=== PATIENT | female | born 1950 | race Caucasian/White ===

== ENCOUNTER → 2016-08-17 | Outpatient (CLI) | payer MEDICARE ==
[2016-08-17 11:19] LABS: Appearance,Urine Clear (Clear); Bilirubin,Urine Negative (Negative); Glucose,Urine (UA) Negative (Negative); Ketones,Urine Negative (Negative); Leukocyte Esterase,Urine Negative (Negative); Nitrite,Urine Negative (Negative); Protein,Urine Negative (Negative); Specific Gravity,Urine 1.013 (1.001-1.035); UA Billing (MACRO vs. MICRO) CHEM; Urobilinogen,Urine <2.0 mg/dL (<2.0)
[2016-08-17 11:31] LABS: CH 34.1; CHCM 33.9; HCT 49.6 % (34.0-46.0); HDW 2.47; HGB 16.4 gm/dL (11.4-16.0); MCH 33.5 pg (25.0-35.0); MCV 101.3 fL (80.0-100.0); Macrocytosis Slight; Mean Platelet Volume 8.9; RBC 4.89 m/uL (3.80-5.40); RDW 13.2 % (11.5-15.5)
[2016-08-17 15:46] LABS: Hemoglobin A1C 5.8 % (4.2-6.1)
[2016-08-17 16:29] LABS: LDL Cholesterol, Direct 114.2 mg/dL (0.0-129.0)
== END | disposition home or self-care (01) ==
LOC: LABWHC1 10:31
PROVIDERS: ATTEND Internal Medicine Interventional Cardiology
DX: E78.5 Hyperlipidemia, unspecified (principal); R73.9 Hyperglycemia, unspecified; M81.0 Age-related osteoporosis without current pathological fracture; G62.9 Polyneuropathy, unspecified; E05.90 Thyrotoxicosis, unspecified without thyrotoxic crisis or storm; I10 Essential (primary) hypertension
CPT/HCPCS: 36415; 81003; 82306; 82607; 82947; 83036; 83721; 84439; 84443; 85027

== ENCOUNTER 2016-08-20 10:15 | Day surgery (SDC) | payer MEDICARE ==
[2016-08-18 09:55] VITALS: BMI 30.4
[~2016-08-20 10:15] MED LIST: LACTATED RINGERS 1,000 ML IV SCH; MIDAZOLAM (PF) 1 MG/ML 5 ML VIAL IV PRN; MIDAZOLAM 2 MG/2 ML VIAL IV PRN; SODIUM CHLORIDE 0.9% 1,000 ML IV SCH
[2016-08-20 10:31] VITALS: TEMP 98.3
[2016-08-20] MEDS ORDERED: PROPOFOL 10 MG/ML 20 ML VIAL IV ONE (11:38)
[2016-08-20] MEDS ORDERED: LIDOCAINE 1% INJ 10MG/ML (20 ML MDV) ONE (11:38)
[2016-08-20] MEDS ORDERED: SODIUM CHLORIDE 0.9% 1,000 ML IV SCH (12:00)
--- NOTE | 2016-08-20 12:04 | P.PCN ---
Date of Procedure: 08/20/16 Preoperative Diagnosis: Persistent atrial fibrillation Postoperative Diagnosis: Normal sinus rhythm status post electrical cardioversion Procedure(s) Performed: Electrical cardioversion Implants: Indications for Procedure: Operative Findings: Description of Procedure: This patient was brought in for electrical cardioversion electively because of persistent atrial fibrillation unresponsive to pharmacological efforts. Risks benefits options and rationale were explained to the patient in great detail. Under the influence of ultra short-acting intravenous anesthetic agent with the attendance of the anesthesiologist, a single 200 J shock was delivered to the chest wall with anterior and posterior patches. Patient converted to sinus rhythm with a pause of nearly 2.5 seconds. She remained hemodynamically stable and neurologically intact. This was a successful electrical cardioversion. Results were discussed with the patient and her . She will be discharged in the next 3 hours also after she has been ambulatory and has had a snack. I will see her in the office on August 24 as per her appointment at 8:30 AM.
[2016-08-20 14:02] VITALS: BP 115/68; PULSE 65; RESP 16
== END 2016-08-20 14:32 | disposition home or self-care (01) ==
LOC: CATHCVL 10:15
PROVIDERS: ATTEND Internal Medicine Interventional Cardiology
DX: I48.1 Persistent atrial fibrillation (principal); I48.0 Paroxysmal atrial fibrillation; R07.89 Other chest pain; I10 Essential (primary) hypertension; E07.9 Disorder of thyroid, unspecified; F41.9 Anxiety disorder, unspecified; Z79.01 Long term (current) use of anticoagulants; Z79.899 Other long term (current) drug therapy; Z87.891 Personal history of nicotine dependence
CPT/HCPCS: 92960; J2001; J2704

== ENCOUNTER → 2016-09-01 | Outpatient (CLI) | payer MEDICARE ==
[2016-09-01 10:43] LABS: ALT 41 U/L (9-52); AST 34 U/L (14-36); Alkaline Phosphatase 98 U/L (38-126); Anion Gap 9 mmol/L; Blood Urea Nitrogen 20 mg/dL (7-17); Calcium 9.3 mg/dL (8.4-10.2); Carbon Dioxide 26 mmol/L (22-30); Chloride 106 mmol/L (98-107); Glucose 100 mg/dL (74-99); Magnesium 2.1 mg/dL (1.6-2.3); Non-African American GFR(MDRD) >60 (>60 ml/min/1.73 sqM); Potassium 4.6 mmol/L (3.5-5.1); Sodium 141 mmol/L (137-145); Total Bilirubin 1.1 mg/dL (0.2-1.3)
== END | disposition home or self-care (01) ==
LOC: LABWHC1 09:41
PROVIDERS: ATTEND Internal Medicine Clinical Cardiac Electrophysiology
DX: I48.91 Unspecified atrial fibrillation (principal); I49.5 Sick sinus syndrome
CPT/HCPCS: 36415; 80053; 83735; 84439; 84443

== ENCOUNTER 2017-02-25 09:04 | Day surgery (SDC) | payer MEDICARE ==
[2017-02-17 09:34] VITALS: BMI 31.8
[~2017-02-25 09:04] MED LIST changes: +DEXAMETHASONE SOD PHOSPHATE 10 MG/ML 1 ML VIAL IV ONE; -LACTATED RINGERS 1,000 ML IV SCH; -MIDAZOLAM (PF) 1 MG/ML 5 ML VIAL IV PRN; -MIDAZOLAM 2 MG/2 ML VIAL IV PRN; +MORPHINE SULFATE 5 MG/ML SYRINGE IV PRN; +ONDANSETRON 4 MG/2 ML VIAL IVP ONE; +ONDANSETRON 4 MG/2 ML VIAL IVP PRN; -SODIUM CHLORIDE 0.9% 1,000 ML IV SCH
[2017-02-25] MEDS: SODIUM CHLORIDE 0.9% 1,000 ML IV SCH (09:28)
[2017-02-25] MEDS ORDERED: MIDAZOLAM 2 MG/2 ML VIAL ONE (10:12)
[2017-02-25] MEDS ORDERED: ePHEDrine SULFATE/0.9% NACL/PF 50 MG/5 ML SYRINGE IV ONE (10:12)
[2017-02-25] MEDS ORDERED: PHENYLEPHRINE-0.9% NACL SYG 1 MG/10 ML SYRINGE ONE (10:12)
[2017-02-25] MEDS ORDERED: LABETALOL 5 MG/ML VIAL MDV ONE (10:12)
[2017-02-25] MEDS ORDERED: LIDOCAINE 1% INJ 10MG/ML (20 ML MDV) ONE (10:12)
[2017-02-25] MEDS ORDERED: fentaNYL (PF) 50 MCG/ML 2 ML AMP ONE (10:12)
[2017-02-25] MEDS ORDERED: HEPARIN SODIUM,PORCINE 10,000 UNIT/ML 1 ML VIAL ONE (10:12)
[2017-02-25] MEDS ORDERED: SUCCINYLCHOLINE CHLORIDE 100 MG/5 ML SYR IV ONE (10:12)
[2017-02-25] MEDS ORDERED: PROTAMINE SULFATE 10 MG/ML 5 ML VIAL IV ONE ×2 (10:12→13:43)
[2017-02-25] MEDS ORDERED: PROPOFOL 10 MG/ML 20 ML VIAL IV ONE (10:12)
[2017-02-25] MEDS ORDERED: LIDOCAINE 2% INJ 20 MG/ML SQ ONE (11:00)
[2017-02-25] MEDS ORDERED: HEPARIN SOD,PORK IN 0.45% NACL 25,000 UNIT in 0.45% NACL 1 500ML.BAG IV ONE ×2 (11:20)
[2017-02-25] MEDS ORDERED: IOHEXOL 350 MG/ML (PER ML) 100ML BTL INJ ONE (13:40)
[2017-02-25] MEDS ORDERED: HYDROcodone/APAP 5-325MG 1 EACH TAB PO PRN (13:48)
[2017-02-25] MEDS ORDERED: ACETAMINOPHEN TAB 325 MG TAB PO PRN (13:48)
[2017-02-25] MEDS ORDERED: ACETAMINOPHEN IV (For NPO) 1,000 MG in EMPTY BAG 1 BAG IVPB ONE (13:48)
[2017-02-25] MEDS ORDERED: LACTATED RINGERS 1,000 ML IV ONE (14:15)
--- NOTE | 2017-02-25 14:25 | P.PCN ---
Preoperative Diagnosis: Indication for the procedure Symptomatic atrial fibrillation, intolerant of flecainide him a failed flecainide, underlying sick sinus syndrome with postconversion pauses, history of hypertension Procedures performed (PVI - CRYO Ablation) Invasive hemodynamic monitoring while general anesthesia, right femoral arterial line for monitoring and sampling Comprehensive diagnostic EP study with attempted arrhythmia induction CS pacing and recording Catheter the mapping of the tachycardia (NOT 3D mapping) Intracardiac echocardiography Pulmonary vein isolation with transseptal and comprehensive EPS, 21009 Electrical cardioversion at the end of the procedure sinus rhythm Long procedure as described below Procedure details Patient was brought to the EP lab in a fasting state. Written informed consent was obtained prior to the procedure. Procedure performed under general anesthesia After initial muscle relaxant use, muscle relaxants were not given thereafter in order to assess phrenic nerve during procedure Patient prepped and draped as per protocol Full cryo-set up with standard preparation of the cryoablation tools done Femoral Venous access obtained on the right and left groins Sheaths placed Diagnostic catheters for the high right atrium, phrenic nerve stimulation and pacing, His bundle, RV and coronary sinus placed Intracardiac echo catheter placed Long sheath placed in the right atrium Left and right transseptal catheterization performed under intracardiac echo guidance Intravenous heparin with aCT above 300 Later, catheter positioning and balloon positioning under intracardiac echo Baseline measurements Sinus cycle length 839, NE 159, QRS 91, QT 451 ms. Line AH 46, HV 56 Comprehensive diagnostic EP study with drug infusion Atrial pacing performed from the high right atrium and the coronary sinus Sinus node recovery time at a pacing cycle length of 600 ms was 793 ms consistent with entrance block. AV node Wenckebach block from the coronary sinus for 70 ms AV node Wenckebach block from the high right atrium 450 ms VA Wenckebach block 370 ms Transseptal catheterization performed RA pressure 15/8/12 LA pressure 19/9/13 Transseptal catheterization performed with standard sheath. Transseptal access was difficult because of a thickened intra-atrial septum in the fossa ovalis area. After multiple attempts including the use of the transseptal wire and electrocautery, finally with a slight counterclockwise rotation access was obtained successfully without any complications. The cryoablation sheath was then placed with an over the wire exchange without any acute complications. All 4 pulmonary veins were isolated in the following sequence: Left superior followed by left inferior followed by right superior followed by right inferior The cryo-ablation balloon was placed at the os of each vein 1.5 mL of IV dye was injected to confirm an occluded vein Goal during cryoablation was to achieve -30C in the first 30 seconds. If not the balloon was repositioned to obtain this result After completion of Cryoblation with durations from 180-240 seconds, entrance block was confirmed with the Attain circular catheter in a roving fashion around the antrum of the pulmonary veins Phrenic nerve pacing was performed from the SVC, right innominate vein area and diaphragm voltage was monitored as well as manually Parameter goals for each cryo freeze -30C by 30 seconds -40C by 60 seconds Mediated between minus 40-55 Thaw time greater than 10 seconds Balloon visualized by intracardiac echo to ensure that the proximal one third was within the left atrium/antrum Left superior pulmonary vein 3 cryo lesions, 110 seconds, prematurely terminated on account of low temperatures within the esophageal lumen. After esophageal deflection and additional 120 seconds followed by 180 seconds delivered. Isolation of the vein in 30 seconds with loss of electrograms. Far field left atrial appendage signals Left inferior pulmonary vein 2 cryo lesions 110 seconds once again prematurely terminated on account of low temperatures within the esophageal lumen. After esophageal deflection, an additional 240 seconds of cryoablation delivered. Complete isolation of the vein Right superior pulmonary vein, during phrenic nerve pacing 2 cryo lesions on 93 followed by 120 seconds. Mild softening of the diaphragmatic contraction with normal amplitude diaphragmatic electrograms that remained unchanged, but at the end of the procedure there was no evidence for diaphragmatic paresis did successful isolation of veins Right inferior pulmonary vein, during phrenic nerve pacing 4 minute cryoablation lesion followed by successful isolation Roofline made. 2 cryo lesions on rightward on leftward, 60 seconds each At the end of the procedure the Achieve catheter was once again used to check for entrance block Phrenic nerve stimulation was performed to confirm diaphragmatic stimulation the end of the procedure. Strong diaphragmatic contractions without any evidence for weakness as compared to baseline. It is quite likely that during right superior vein cryoablation the catheter may have moved in the region of the phrenic nerve resulting in transient softening of contraction but without any change in the diaphragmatic electrograms amplitude Cine fluoroscopy was performed at the very end of the procedure to confirm movement of both diaphragms with inspiration and expiration At the end of the procedure the patient was extubated Heparin was reversed Venous sheaths were removed and hemostasis assured Result Successful pulmonary vein isolation using cryo-ablation Roofline with cryo balloon Complete entrance block in all 4 veins confirmed No evidence for phrenic nerve injury Esophageal deflection performed, left-sided esophagus Increasing the cycle length with organization of the atrial fibrillation to 250 ms with stabilization of the surface electrograms, positive in V1 and negative in the inferior leads Electrical cardioversion performed at the end of the procedure This was a long procedure on account of the time it took to get transseptal access successfully through a thickened interatrial septum in the fossa ovalis lesion, occlusion of the left superior vein and particularly occlusion of the right inferior vein which took considerable manipulative efforts to achieve complete occlusion and successful isolation. In addition the esophagus had to be moved away from the left-sided veins because of low temperatures within the esophagus. Esophagus successfully deflected Anesthesia: GETA Condition: stable Disposition: floor
[2017-02-25 14:58] LABS: T4, Free (Free Thyroxine) 2.02 ng/dL (0.78-2.19)
[2017-02-25] MEDS: LACTATED RINGERS 1,000 ML IV SCH ×2 (20:09→20:29)
[2017-02-25] MEDS: RIVAROXABAN 10 MG TAB PO SCH (20:25)
[2017-02-25] MEDS: METOPROLOL TARTRATE 12.5 MG TAB PO SCH (20:28)
[2017-02-25] MEDS ORDERED: FAMOTIDINE 20 MG TAB PO SCH (21:00)
[2017-02-25] MEDS ORDERED: LORazepam 1 MG TAB PO SCH (21:00)
[2017-02-26] MEDS: SODIUM CHLORIDE 0.9% 1,000 ML IV SCH (04:16)
[2017-02-26 08:09] VITALS: RESP 18
[2017-02-26] MEDS: FUROSEMIDE 40 MG TAB PO SCH ×2 (08:35→08:50)
[2017-02-26] MEDS: METOPROLOL TARTRATE 12.5 MG TAB PO SCH (08:35)
[2017-02-26] MEDS ORDERED: LOSARTAN 25 MG TAB PO SCH (09:00)
[2017-02-26] MEDS ORDERED: DULoxetine HCL 20 MG CAPSULE.DR PO SCH (09:00)
[2017-02-26] MEDS ORDERED: LEVOTHYROXINE 88 MCG TAB PO SCH (10:15)
--- NOTE | 2017-02-26 10:51 | P.DS ---
Providers Attending physician: Jude Melendez Primary care physician: Lavell Baires [facility] Course: Patient is doing well. No chest discomfort mild soreness in the throat. She takes a deep breath she is of minimal discomfort in the chest. She is walking around ablating the hallways no shortness of breath. Yesterday after the FemStop was removed she has some bleeding in the groin but now this is settled down. There is no hematoma clinically no swelling On examination Blood pressure 131/48 mmHg pulse rate in the 60s afebrile 97.6F Heart sounds S1 and S2 are normal no rub no gallop no murmurs Breath sounds are clear no rhonchi no crackles Abdomen soft nontender Extended is warm no edema No hematoma in either groin Impression Persistent atrial fibrillation, symptomatic, failed flecainide, intolerant to flecainide also Sick Sinus Syndrome with postconversion pauses following electrical cardioversion in the past Status post cryoablation of the pulmonary veins and the roof line in the left atrium Status post electrical cardioversion for atrial tachycardia cycle length 250 ms Plan Continue reticulocyte regulation continue current medications without any changes and follow-up in the office within 1-2 weeks for a groin check Patient Condition at Discharge: Stable Plan - Discharge Summary Discharge Rx Participant: Yes New Discharge Prescriptions: Continue Metoprolol Tartrate 12.5 mg PO BID Ranitidine HCl [Zantac] 150 mg PO HS Multivitamins, Thera [Multivitamin (formulary)] 1 each PO DAILY LORazepam [Ativan] 1 mg PO HS Levothyroxine Sodium [Synthroid] 88 mcg PO DAILY Cod Liver Oil 1 each PO DAILY DULoxetine HCL [Cymbalta] 40 mg PO DAILY Rivaroxaban [Xarelto] 20 mg PO W/SUPPER Pro-Hyndman 1 tab PO DAILY Losartan Potassium 25 mg PO DAILY Cholecalciferol [Vitamin D3] 1,000 unit PO DAILY Discharge Medication List Cod Liver Oil 1 each PO DAILY 10/10/14 [History] LORazepam [Ativan] 1 mg PO HS 10/10/14 [History] Levothyroxine Sodium [Synthroid] 88 mcg PO DAILY 10/10/14 [History] Metoprolol Tartrate 12.5 mg PO BID 10/10/14 [History] Multivitamins, Thera [Multivitamin (formulary)] 1 each PO DAILY 08/19/15 [ History] Ranitidine HCl [Zantac] 150 mg PO HS 10/10/14 [History] DULoxetine HCL [Cymbalta] 40 mg PO DAILY 08/18/16 [History] Losartan Potassium 25 mg PO DAILY 08/18/16 [History] Pro-Hyndman 1 tab PO DAILY 08/18/16 [History] Rivaroxaban [Xarelto] 20 mg PO W/SUPPER 08/18/16 [History] Cholecalciferol [Vitamin D3] 1,000 unit PO DAILY 02/17/17 [History] Follow up Appointment(s)/Referral(s): Jude Melendez MD [STAFF PHYSICIAN] - 2 Weeks Activity/Diet/Wound Care/Special Instructions: Post EP study - Ablation instructions 1. Keep access sites dry for 2 days. 2. No heavy lifting or straining for 2 days. 3. Avoid bending the hips repeatedly for 2 days. 4. You may go up and down stairs slowly Call if the following is noted 1. Bleeding, increasing swelling or pain at the access sites. 2. Increasing chest discomfort, especially upon taking a deep breath. 3. Increasing shortness of breath, at rest or with exertion. 4. Undue cough / phlegm 5. Difficulty or pain while swallowing. 6. Pain or change in color in the extremities. 7. Fever, chills, rigors. 8. Increasing headache or neurologic symptoms. 9. Dizziness, fainting, palpitations Follow-up with Dr. Bender in 2 weeks. No change in medications Continue Xarelto Discharge Disposition: HOME SELF-CARE
[2017-02-26 16:07] VITALS: BP 158/80; PULSE 92; TEMP 97.8
[2017-02-26] MEDS: RIVAROXABAN 10 MG TAB PO SCH (17:51)
== END 2017-02-26 18:15 | disposition home or self-care (01) ==
LOC: CATHEP 09:04 → 3OBS 13:35 → CATHEP 02-26 18:15
PROVIDERS: ATTEND Internal Medicine Clinical Cardiac Electrophysiology
DX: I48.1 Persistent atrial fibrillation (principal); I49.5 Sick sinus syndrome; I49.1 Atrial premature depolarization; J02.9 Acute pharyngitis, unspecified; I10 Essential (primary) hypertension; F41.9 Anxiety disorder, unspecified; E07.9 Disorder of thyroid, unspecified; K21.9 Gastro-esophageal reflux disease without esophagitis; Z79.01 Long term (current) use of anticoagulants; Z79.899 Other long term (current) drug therapy; Z88.8 Allergy status to other drugs, medicaments and biological substances; Z87.891 Personal history of nicotine dependence
CPT/HCPCS: 93662; 93609; 93656; 84439; 84443; C1769 ×5; C1894 ×3; C1730 ×4; C1759; C1893; C1733; C1766; J2001 ×2; J2250; J2720; J1644 ×3; Q9967; J3010; J2370; J0330; J2704

== ENCOUNTER 2017-10-20 08:30 | Day surgery (SDC) | payer MEDICARE ==
[2017-10-18 10:17] VITALS: BMI 30.4
[~2017-10-20 08:30] MED LIST changes: -DEXAMETHASONE SOD PHOSPHATE 10 MG/ML 1 ML VIAL IV ONE; +LACTATED RINGERS 1,000 ML IV SCH; -MORPHINE SULFATE 5 MG/ML SYRINGE IV PRN; -ONDANSETRON 4 MG/2 ML VIAL IVP ONE; -ONDANSETRON 4 MG/2 ML VIAL IVP PRN
[2017-10-20] MEDS ORDERED: LACTATED RINGERS 1,000 ML IV ONE (09:09)
[2017-10-20] MEDS ORDERED: LIDOCAINE 1% 20 ML VIAL (10MG/ML) FOR IV START INTRADERMA ONE (09:09)
[2017-10-20 09:17] VITALS: TEMP 97.4
[2017-10-20] MEDS ORDERED: PROPOFOL 10 MG/ML 20 ML VIAL IV ONE (09:42)
[2017-10-20] MEDS ORDERED: LIDOCAINE 1% INJ 10MG/ML (20 ML MDV) ONE (09:42)
--- NOTE | 2017-10-20 09:59 | P.PCN ---
Date of Procedure: 10/20/17 Procedure(s) Performed: BRIEF HISTORY: Patient is a 67-year-old pleasant white female, scheduled for an elective colonoscopy as a part of screening for colorectal neoplasia. She has family history of colon cancer diagnosed in her mother in her 70s. Her last colonoscopy was 7 years ago. PROCEDURE PERFORMED: Colonoscopy snare polypectomy . PREOPERATIVE DIAGNOSIS: Screening for colon cancer/family history of colon cancer. IV sedation per Anesthesia. PROCEDURE: After informed consent was obtained, the patient, was brought into the endoscopy unit. IV sedation was administered by Anesthesia under continuous monitoring. Digital rectal examination was normal. Initially the Olympus CF- 160 flexible video colonoscope was then inserted in the rectum, gradually advanced into the cecum without any difficulty. Careful examination was performed as the scope was gradually being withdrawn. Ileocecal valve and the appendiceal orifice were visualized and appeared normal. Prep was excellent. Mucosa of the cecum, ascending colon, appeared normal. In the transverse colon there was a 7-8 mm flat polyp that was removed by snare polypectomy. Rest of the transverse colon, descending colon, sigmoid colon, and rectum appeared normal. Retroflexion was performed in the rectum and no lesions were seen. The patient tolerated the procedure well. IMPRESSION: 7-8 mm flat transverse colon polyp status post polypectomy Rest of the colon appeared normal RECOMMENDATIONS: Findings of this examination were discussed with the patient.as well as her family. She was advised to follow with the biopsy results. She can have a repeat screening colonoscopy in 5 years because of family history of colon cancer
[2017-10-20 10:05] VITALS: RESP 16
[2017-10-20 10:16] VITALS: BP 124/77; PULSE 57
== END 2017-10-20 10:32 | disposition home or self-care (01) ==
LOC: ORWHC2ENDO 08:30
PROVIDERS: ATTEND Internal Medicine Gastroenterology
DX: Z12.11 Encounter for screening for malignant neoplasm of colon (principal); Z80.0 Family history of malignant neoplasm of digestive organs; K63.5 Polyp of colon; I10 Essential (primary) hypertension; I48.91 Unspecified atrial fibrillation; E07.9 Disorder of thyroid, unspecified; K21.9 Gastro-esophageal reflux disease without esophagitis; Z79.01 Long term (current) use of anticoagulants; Z79.890 Hormone replacement therapy; Z79.899 Other long term (current) drug therapy
CPT/HCPCS: 88305; 45385; J2001; J2704

== ENCOUNTER → 2017-12-28 | Outpatient (CLI) | payer MEDICARE ==
--- NOTE | 2017-12-29 11:48 | MM ---
Reason for exam: screening (asymptomatic). Last mammogram was performed 2 years and 10 months ago. History: Patient is postmenopausal and had first child at age 31. Took estrogen for 6 years beginning at age 50. Physical Findings: A clinical breast exam by your physician is recommended on an annual basis and results should be correlated with mammographic findings. MG 3D Screening Mammo W/Cad Bilateral CC and MLO view(s) were taken. Prior study comparison: February 12, 2015, bilateral MG screening mammo w CAD. February 01, 2014, bilateral MG screening mammo w CAD. There are scattered fibroglandular densities. There is no discrete abnormality. No significant changes when compared with prior studies. ASSESSMENT: Negative, BI-RAD 1 RECOMMENDATION: Routine screening mammogram of both breasts in 1 year.
== END | disposition home or self-care (01) ==
LOC: RADMAMWWP 12:55
PROVIDERS: ATTEND Internal Medicine
DX: Z12.31 Encounter for screening mammogram for malignant neoplasm of breast (principal)
CPT/HCPCS: 77063; 77067

== ENCOUNTER → 2018-11-10 | Outpatient (CLI) | payer MEDICARE ==
--- NOTE | 2018-11-10 14:04 | BD ---
EXAMINATION TYPE: Axial Bone Density DATE OF EXAM: 11/10/2018 COMPARISON: NONE CLINICAL HISTORY: Height: 5 FT 3 IN Weight: 191 FRAX RISK QUESTIONS: History of Fracture in Adulthood: YES RISK FACTORS HISTORY OF: Family History of Osteoporosis: YES Active: YES Postmenopausal woman: APPROX AGE 51 Lost more than 2 inches in height since high school: YES MEDICATIONS: Thyroid Medications: YES Which medication: LEVOTHYROXINE How Long: SINCE AGE 31 Additional Medications: METOPROLOL, LOSARTAN, DILOXITINE, XERALTO,TRAZADONE, RATIDINE,LEVOTHYROXINE Additional History: EXAM MEASUREMENTS: Bone mineral densitometry was performed using the Icarus Ascending System. Bone mineral density as measured about the Lumbar spine is: ----- L1-L4(G/cm2): 1.082 T Score Values are as follows: ----- L2: -0.9 ----- L3: -0.8 ----- L4: -0.7 ----- L1-L4: -0.8 Bone mineral density has: DECREASED -1.5 % since study of: 2009 Bone mineral density about the R hip (g/cm2): 0.999 Bone mineral density about the L hip (g/cm2): 0.883 T Score values are as follows: -----R Neck: -0.3 -----L Neck: -1.1 -----R Total: 0.1 -----L Total: -0.3 Bone mineral density has: DECREASED -0.6 % since study of: 2009 IMPRESSION: No evidence for osteoporosis or osteopenia. NOTE: T-SCORE=SD OF THE YOUNG ADULT MEAN.
== END | disposition home or self-care (01) ==
LOC: RADBDWWP 12:38
PROVIDERS: ATTEND Internal Medicine
DX: M81.0 Age-related osteoporosis without current pathological fracture (principal)
CPT/HCPCS: 77080

== ENCOUNTER → 2019-01-26 | Outpatient (CLI) | payer MEDICARE ==
[2019-01-26 13:22] LABS: MCH 31.8 pg (25.0-35.0); MCHC 32.6 g/dL (31.0-37.0); MCV 97.6 fL (80.0-100.0); Mean Platelet Volume 7.9; Platelet Count 256 k/uL (150-450); RDW 12.8 % (11.5-15.5); WBC 5.2 k/uL (3.8-10.6)
[2019-01-26 13:53] LABS: Amorphous Sediment,Urine Rare /hpf; Appearance,Urine Cloudy (Clear); Bilirubin,Urine Negative (Negative); Blood,Urine Negative (Negative); Color,Urine Yellow; Glucose,Urine (UA) Negative (Negative); Ketones,Urine Negative (Negative); Leukocyte Esterase,Urine Negative (Negative); Mucus,Urine Rare /hpf; Nitrite,Urine Negative (Negative); Protein,Urine Negative (Negative); RBC,Urine <1 /hpf (0-5); Specific Gravity,Urine 1.014 (1.001-1.035); Squamous Epithelial Cell,Urine 1 /hpf (0-4); Urobilinogen,Urine <2.0 mg/dL (<2.0); WBC,Urine 1 /hpf (0-5)
[2019-01-26 20:40] LABS: C Reactive Protein <0.4 mg/dL (0.0-0.8); Chol/HDL Ratio 2.88; Cholesterol 190 mg/dL (0-200); LDL Cholesterol,Calculated 105.8 mg/dL (0.0-131.0)
[2019-01-30 12:25] LABS: ALT 23 U/L (8-44); AST 31 U/L (13-35); African American GFR (CKD) 66.6 (60.0-200.0); Albumin/Globulin Ratio 1.62 (1.60-3.17); Alkaline Phosphatase 91 U/L (41-126); Calcium 9.6 mg/dL (8.7-10.3); Carbon Dioxide 18.6 mmol/L (21.6-31.8); Chloride 109 mmol/L (96-109); Globulin 2.6 g/dL (1.6-3.3); Glucose 93 mg/dL (70-110); Non-African American GFR(CKD) 57.4 (60.0-200.0); Potassium 4.6 mmol/L (3.5-5.5); Sodium 142 mmol/L (135-145); Total Bilirubin 0.8 mg/dL (0.2-1.2); Total Protein 6.8 g/dL (6.2-8.2)
== END | disposition home or self-care (01) ==
LOC: LABWHC1 12:23
PROVIDERS: ATTEND Internal Medicine
DX: E03.9 Hypothyroidism, unspecified (principal); E78.5 Hyperlipidemia, unspecified; M19.90 Unspecified osteoarthritis, unspecified site
CPT/HCPCS: 36415; 80053; 80061; 81001; 84443; 85027; 86140

== ENCOUNTER → 2020-01-23 | Outpatient (CLI) | payer MEDICARE ==
[2020-01-23 12:49] LABS: Appearance,Urine Clear (Clear); Bilirubin,Urine Negative (Negative); Blood,Urine Negative (Negative); Color,Urine Light Yellow; Glucose,Urine (UA) Negative (Negative); HCT 35.3 % (34.0-46.0); HGB 11.5 gm/dL (11.4-16.0); Hypochromasia Slight; Ketones,Urine Negative (Negative); Leukocyte Esterase,Urine Negative (Negative); MCH 29.7 pg (25.0-35.0); MCHC 32.7 g/dL (31.0-37.0); Mean Platelet Volume 8.1; Nitrite,Urine Negative (Negative); PH, Urine 7.5 (5.0-8.0); Platelet Count 274 k/uL (150-450); Protein,Urine Negative (Negative); RBC 3.88 m/uL (3.80-5.40); RDW 13.4 % (11.5-15.5); Specific Gravity,Urine 1.012 (1.001-1.035); Urobilinogen,Urine <2.0 mg/dL (<2.0); WBC 4.7 k/uL (3.8-10.6)
[2020-01-23 19:52] LABS: ALT 22 U/L (8-44); AST 24 U/L (13-35); African American GFR (CKD) 75.1 (60.0-200.0); Albumin/Globulin Ratio 1.62 (1.60-3.17); Alkaline Phosphatase 85 U/L (41-126); BUN/Creat Ratio 22.22 Ratio (12.00-20.00); C Reactive Protein <0.4 mg/dL (0.0-0.8); Calcium 9.6 mg/dL (8.7-10.3); Carbon Dioxide 27.4 mmol/L (21.6-31.8); Chloride 104 mmol/L (96-109); Chol/HDL Ratio 2.87; Cholesterol 201 mg/dL (0-200); Globulin 2.6 g/dL (1.6-3.3); Glucose 104 mg/dL (70-110); LDL Cholesterol,Calculated 106.4 mg/dL (0.0-131.0); Non-African American GFR(CKD) 64.8 (60.0-200.0); Potassium 5.1 mmol/L (3.5-5.5); Sodium 140 mmol/L (135-145); Total Bilirubin 0.8 mg/dL (0.3-1.2); Total Protein 6.8 g/dL (6.2-8.2)
== END | disposition home or self-care (01) ==
LOC: LABWHC1 11:40
PROVIDERS: ATTEND Internal Medicine
DX: R73.9 Hyperglycemia, unspecified (principal); E03.9 Hypothyroidism, unspecified; M19.90 Unspecified osteoarthritis, unspecified site
CPT/HCPCS: 36415; 80053; 80061; 81003; 83036; 84443; 85027; 86140

== ENCOUNTER → 2020-02-06 | Outpatient (CLI) | payer MEDICARE ==
[2020-02-06 14:12] LABS: HCT 34.2 % (34.0-46.0); HGB 11.2 gm/dL (11.4-16.0); Hypochromasia Moderate; MCH 29.8 pg (25.0-35.0); MCHC 32.8 g/dL (31.0-37.0); MCV 90.9 fL (80.0-100.0); Mean Platelet Volume 8.5; Platelet Count 275 k/uL (150-450); RBC 3.76 m/uL (3.80-5.40); RDW 13.5 % (11.5-15.5); WBC 5.5 k/uL (3.8-10.6)
[2020-02-06 20:16] LABS: % Iron Saturation 5.56 (12.00-45.00); Ferritin 7.6 ng/mL (10.0-291.0)
[2020-02-07 17:17] LABS: Folate, Serum 21.6 ng/mL
== END | disposition home or self-care (01) ==
LOC: LABWHC1 12:23
PROVIDERS: ATTEND Internal Medicine
DX: D64.9 Anemia, unspecified (principal); K92.2 Gastrointestinal hemorrhage, unspecified
CPT/HCPCS: 36415; 82272; 82607; 82728; 82746; 83540; 83550; 85027

== ENCOUNTER → 2020-03-05 | Outpatient (CLI) | payer MEDICARE ==
[2020-03-05 12:35] LABS: Anisocytosis Slight; HCT 41.3 % (34.0-46.0); HGB 13.2 gm/dL (11.4-16.0); Hypochromasia Slight; MCH 30.4 pg (25.0-35.0); Macrocytosis Slight; Mean Platelet Volume 8.6; Platelet Count 260 k/uL (150-450); RBC 4.34 m/uL (3.80-5.40); RDW 17.4 % (11.5-15.5); WBC 4.6 k/uL (3.8-10.6)
== END | disposition home or self-care (01) ==
LOC: LABWHC1 11:28
PROVIDERS: ATTEND Internal Medicine
DX: D64.9 Anemia, unspecified (principal)
CPT/HCPCS: 36415; 85027

== ENCOUNTER → 2020-04-02 | Outpatient (CLI) | payer MEDICARE ==
[2020-04-02 20:30] LABS: HCT 41.4 % (37.2-46.3); HGB 13.6 g/dL (12.0-15.0); MCH 30.6 pg (27.0-32.0); MCHC 32.9 g/dL (32.0-37.0); MCV 93.2 fL (80.0-97.0); Mean Platelet Volume 12.2 fL (9.5-12.2); Platelet Count 245 X 10*3/uL (140-440); RBC 4.44 X 10*6/uL (4.10-5.20); RDW 17.4 % (11.5-14.5); WBC 5.43 X 10*3/uL (4.50-10.00)
== END | disposition home or self-care (01) ==
LOC: LABWHC1 12:53
PROVIDERS: ATTEND Internal Medicine
DX: D64.9 Anemia, unspecified (principal)
CPT/HCPCS: 36415; 85027

== ENCOUNTER → 2020-05-09 | Outpatient (CLI) | payer MEDICARE ==
[2020-05-09 23:28] LABS: HCT 42.5 % (37.2-46.3); MCHC 32.9 g/dL (32.0-37.0); MCV 97.3 fL (80.0-97.0); Platelet Count 277 X 10*3/uL (140-440); RBC 4.37 X 10*6/uL (4.10-5.20); RDW 15.8 % (11.5-14.5); WBC 6.28 X 10*3/uL (4.50-10.00)
== END | disposition home or self-care (01) ==
LOC: LABWHC1 14:20
PROVIDERS: ATTEND Internal Medicine
DX: D64.9 Anemia, unspecified (principal)
CPT/HCPCS: 36415; 85027

== ENCOUNTER → 2020-06-21 | Outpatient (CLI) | payer MEDICARE ==
--- NOTE | 2020-06-24 10:26 | MM ---
Reason for exam: screening (asymptomatic). Last mammogram was performed 2 years and 6 months ago. History: Patient is postmenopausal and had first child at age 31. Took estrogen for 6 years beginning at age 50. Physical Findings: A clinical breast exam by your physician is recommended on an annual basis and results should be correlated with mammographic findings. MG 3D Screening Mammo W/Cad Bilateral CC and MLO view(s) were taken. Prior study comparison: December 28, 2017, bilateral MG 3d screening mammo w/cad. February 12, 2015, bilateral MG screening mammo w CAD. Benign appearing bilateral calcifications. There is chronic nodularity in the right breast. No significant changes when compared with prior studies. ASSESSMENT: Benign, BI-RAD 2 RECOMMENDATION: Routine screening mammogram of both breasts in 1 year.
== END ==
LOC: RADMAMWWP 15:17
PROVIDERS: ATTEND Internal Medicine
DX: Z12.31 Encounter for screening mammogram for malignant neoplasm of breast (principal)
CPT/HCPCS: 77063; 77067

== ENCOUNTER → 2021-07-24 | Outpatient (CLI) | payer MEDICARE ==
[2021-07-24 18:16] LABS: HCT 46.2 % (37.2-46.3); HGB 15.1 g/dL (12.0-15.0); MCH 32.1 pg (27.0-32.0); MCHC 32.7 g/dL (32.0-37.0); MCV 98.1 fL (80.0-97.0); Mean Platelet Volume 12.1 fL (9.5-12.2); NRBC Per 100 WBC 0 /100 WBCS (0.0-0.0); Platelet Count 200 X 10*3/uL (140-440); RBC 4.71 X 10*6/uL (4.10-5.20); RDW 13.2 % (11.5-14.5); WBC 7.77 X 10*3/uL (4.50-10.00)
[2021-07-24 18:38] LABS: African American GFR (CKD) 65.2 (60.0-200.0); Anion Gap 10.6 mmol/L (10.00-18.00); Blood Urea Nitrogen 13.2 mg/dL (9.0-27.0); Carbon Dioxide 24.4 mmol/L (20.0-27.5); Non-African American GFR(CKD) 56.2 (60.0-200.0); Potassium 3.9 mmol/L (3.5-5.5)
== END | disposition home or self-care (01) ==
LOC: LABPAT 13:24
PROVIDERS: ATTEND Internal Medicine Clinical Cardiac Electrophysiology
DX: Z01.812 Encounter for preprocedural laboratory examination (principal); I47.1 Supraventricular tachycardia
CPT/HCPCS: 80051; 82565; 84520; 85027

== ENCOUNTER 2021-08-05 11:17 | Day surgery (SDC) | payer MEDICARE ==
[2021-08-05] MEDS: SODIUM CHLORIDE 0.9% 1,000 ML IV SCH (12:15)
[2021-08-05 12:43] VITALS: RESP 16
[2021-08-05] MEDS ORDERED: fentaNYL (PF) 50 MCG/ML 2 ML AMP ONE (14:14)
[2021-08-05] MEDS ORDERED: PROPOFOL 10 MG/ML 20 ML VIAL IV ONE (14:14)
[2021-08-05] MEDS ORDERED: PHENYLEPHRINE-0.9% NACL SYG 1,000 MCG/10 ML SYRINGE ONE (14:14)
[2021-08-05] MEDS ORDERED: HEPARIN SODIUM,PORCINE 10,000 UNIT/ML 1 ML VIAL ONE (14:14)
[2021-08-05] MEDS ORDERED: SUCCINYLCHOLINE CHLORIDE 100 MG/5 ML SYR IV ONE (14:14)
[2021-08-05] MEDS ORDERED: ROCURONIUM 10 MG/ML (5 ML VIAL) IV ONE (14:14)
[2021-08-05] MEDS ORDERED: FUROSEMIDE 10 MG/ML 2 ML VIAL ONE (14:14)
[2021-08-05] MEDS ORDERED: LIDOCAINE 2% INJ 20 MG/ML (2 ML VIAL) ONE (14:14)
[2021-08-05] MEDS ORDERED: PROTAMINE SULFATE 10 MG/ML 5 ML VIAL IV ONE (14:14)
[2021-08-05] MEDS ORDERED: MIDAZOLAM 2 MG/2 ML VIAL ONE (14:14)
[2021-08-05] MEDS ORDERED: NEOSTIGMINE 1 MG/ML 10 ML VIAL ONE (14:14)
[2021-08-05] MEDS ORDERED: ONDANSETRON 4 MG/2 ML VIAL ONE (14:14)
[2021-08-05] MEDS ORDERED: GLYCOPYRROLATE 0.2 MG/ML 2 ML VIAL ONE (14:14)
[2021-08-05] MEDS ORDERED: LIDOCAINE 1% INJ 10MG/ML (30 ML VIAL-PF) SQ ONE (14:37)
[2021-08-05] MEDS ORDERED: HEPARIN SOD,PORK IN 0.45% NACL 25,000 UNIT in 0.45% NACL 1 250ML.BAG IV ONE (14:40)
--- NOTE | 2021-08-05 15:13 | P.HPCAR ---
History of Present Illness This is Dr. Melendez dictating an H/P on this patient The patient was interviewed and examined IMPRESSION / ASSESSMENT: Recurrent atrial tachycardia History of persistent atrial fibrillation status post PVI and the roof line in 2018 She complains of tiredness and fatigue and lack of energy with walking No chest discomfort no undue shortness of breath at rest nor orthopnea PND Thick intra-atrial septum PLAN: Diagnostic EP study and radiofrequency ablation HPI Patient complains of palpitations and tiredness extortion fatigue with very average activities No dizziness no loss of consciousness ROS: No fever chills or rigors, no cough, phlegm or expectoration, no nausea, vomiting or diarrhea, no hematuria, dysuria, no musculoskeletal complaints, no strokes or seizures, no skin lesions. EXAMINATION: 157 89 mmHg pulse rate in the 70s today afebrile Breath sounds are clear no rhonchi no crackles Heart sounds are regular and normal No JVD no hepatojugular reflux No lower extremity edema REVIEW OF LABS, ECG & MEDICAL DATA Coronavirus PCR negative 2-D echo and Doppler study shows normal LV size and function left atrial enlargement [id number] AI, [id number] MR Physical Exam Vitals: Vital Signs Temp Pulse Resp BP Pulse Ox 08/05/21 12:25 99.0 F 75 16 157/89 98 Intake and Output 08/05/21 08/05/21 08/05/21 06:59 14:59 22:59 Intake Total 0 Balance 0 Intake: IV 0 Other: Weight 87 kg Past Medical History Past Medical History: Atrial Fibrillation, GERD/Reflux, Hypertension, Osteoarthritis (OA), Thyroid Disorder Additional Past Medical History / Comment(s): hx of hemmoroids, having dark stools, family hx of crohns, and colitis, possible hx TIA, See Dr Melendez H&P History of Any Multi-Drug Resistant Organisms: None Reported Past Surgical History: Cardiac Ablation, Section, Hysterectomy, Orthopedic Surgery, Tonsillectomy Additional Past Surgical History / Comment(s): Bilateral cataracts, bilateral foot surgery, baby toe on left foot surgery. Stimwave implant to bilateral ankles Past Anesthesia/Blood Transfusion Reactions: Previous Problems w/ Anesthesia Additional Past Anesthesia/Blood Transfusion Reaction / Comment(s): "very cold after spinal" Smoking Status: Former smoker - Past Family History Brother(s) Additional Family Medical History / Comment(s): ulcerative colitis. removed large intestine has a colostomy Mother Family Medical History: Cancer Additional Family Medical History / Comment(s): crohn's, colon ca Physical Examination Vital Signs Temp Pulse Resp BP Pulse Ox 08/05/21 12:25 99.0 F 75 16 157/89 98 Intake and Output 08/05/21 08/05/21 08/05/21 06:59 14:59 22:59 Intake Total 0 Balance 0 Intake: IV 0 Other: Weight 87 kg Results Current Medications Generic Name Dose Route Start Last Admin Trade Name Freq PRN Reason Stop Dose Admin Sodium Chloride 1,000 mls @ 20 mls/hr 08/05/21 07:51 08/05/21 12:15 Saline 0.9% IV 09/04/21 07:52 0 mls .Q24H BISHNU Administration Intake and Output 08/05/21 08/05/21 08/05/21 06:59 14:59 22:59 Intake Total 0 Balance 0 Intake: IV 0 Other: Weight 87 kg Patient Weight 08/06/21 06:59 Weight 87 kg
[2021-08-05] MEDS ORDERED: HEPARIN SODIUM (1,000 UNIT/ML) 1,000 UNIT in SODIUM CHLORIDE 0.9% 1,000 ML IRRIGATION ONE ×2 (15:20→18:10)
[2021-08-05] MEDS ORDERED: LACTATED RINGERS 1,000 ML IV ONE (16:46)
[2021-08-05] MEDS ORDERED: ACETAMINOPHEN TAB 325 MG TAB PO PRN (18:48)
--- NOTE | 2021-08-05 19:13 | P.EPPROC ---
- EP Procedure Note Electrophysiology Procedure Note: Diagnosis Recurrent atrial tachycardia with RVR At least 2 different morphologies noted 1 with upright and the other with negatively oriented P waves in the inferior leads History of PVI in 2018 Result Diagnostic EP study revealed a very easily inducible atrial tachycardia, 2 different morphologies noted initially Transient mechanical termination during transseptal puncture, at the exact time when the needle crossed over into the left atrium Successful radio-frequency ablation of left atrial roof reentry Successful radiofrequency ablation of septal atrial tachycardia/left atrial septal ablation Successful termination of mitral reentrant tachycardia Despite a complete anatomic alignment of block with good contact force an apartment 40 W, bidirectional block could not be demonstrated across the mitral isthmus However pacing from the coronary sinus at the site of ablation revealed non- capture, therefore [place] sinus lesions were not delivered 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 Written informed consent was obtained prior to the procedure Initially a diagnostic EP study is performed in the likely sedated state. Later during mapping and ablation, general anesthesia is provided Venous sheaths were placed in the right left femoral veins Diagnostic and mapping and ablation cath was replaced intercardiac echo catheter was placed Sinus cycle length 929 ms, MN interval 151 ms, QRS 88 ms and QT 403 ms AH 89 ms and HV 52 ms Parahisian pacing is performed sergey response was noted Atrial tachycardia is a very easily inducible simply with high right atrial pacing at 500 ms Sinus node recovery times at 600 ms was 1134 ms grade normal carotid sinus node recovery times Changing activation sequences were noted sometimes with concentric activation in the CS and sometimes less concentric Right left transseptal catheterization is performed line RA pressure 14/4/10 mmHg LA pressure 20/4/11 mmHg When transseptal catheterization was performed, the tachycardia with concentric activation terminated immediately as the transseptal needle punctured the. In sinus rhythm, intracardiac echo revealed a large left atrial appendage, absence of any thrombus No pericardial effusion around the right ventricle Very small and a limited pericardial effusion with some thickening of the pericardium and the base of the LV No effusion around the right or left atrial posterior mcduffie Mapping of the left atrium and the pulmonary veins was performed The pulmonary veins were found to be completely isolated from prior cryoablation performed in 2018 There was a In the roof consistent with oral for tachycardias with upright P waves in the inferior leads First RF ablation was performed for the septal atrial tachycardia and linear ablation was performed from the roof, along the antrum of the domingo down to the right inferior pulmonary vein Fractionated electrograms were sought and completed a block was made Thereafter linear ablation was performed in the left atrial roof and a complete line of block was made Diagnostic EP study was then once again performed and atrial pacing resulted in the right atrial tachycardia with burst ablation at 220 ms The initial cycle length was 234 ms with negatively oriented P waves in V1 However this quickly organized to a mitral reentrant tachycardia with a cycle length of 260 ms Entrainment mapping confirmed mitral reentry. 3-D electrograms mapping was performed to confirm the rose-mitral circuit too The mitral annulus was identified the left atrial appendage was identified and tagged The lower anterior margin of the left inferior pulmonary vein was identified Initially in a complete line of block was made from the domingo to the mitral annulus with 40W power and good contact force but this only resulted in the long duration of the cycle length without termination When the ablation line was extended to the inferior border of the left inferior pulmonary vein, abrupt termination of the tachycardia occurred, successful terminate However bidirectional block could not be proven across the mitral isthmus line Therefore RF lesions were applied once again along the line We used 40 W for this part of the procedure. Good contact force was provided Despite that bidirectional block could not be proven Pacing was performed from the coronary sinus, corresponding to the location of the endocardial RF line Non-capture was noted in the coronary sinus Therefore no coronary sinus RF lesions This was a long procedure on account of the mitral isthmus ablation It took an extended period of time to terminate the tachycardia However this was successfully performed but without achieving bidirectional block despite good RF lesions delivered at the site without any anatomic Patient tolerated the procedure well without any acute complications Sheaths were removed heparin was stopped Vascade hemostasis was provided Intracardiac echo the end of the procedure did not demonstrate any pericardial effusion LV function is normal Plan If in the future she has recurrence of atrial tachycardia then #1 in case it is a recurrence of mitral reentry then I would proceed with endocardial RF ablation with occlusion of the coronary sinus blood flow with a vascular balloon #2 in case of a right atrial tachycardia, this will be mapped accordingly
[2021-08-05] MEDS: ACETAMINOPHEN IV (For NPO) 1,000 MG in EMPTY BAG 1 BAG IVPB ONE ×2 (19:15→19:30)
--- NOTE | 2021-08-05 19:17 | P.PRLE ---
RE: Kamla Xavier Dear Dr. Almas Gentile underwent an EP study and ablation of multiple atrial tachycardias successfully These tachycardias were in the left atrial septum, left atrial roof and around the mitral valve She has undergone pulmonary vein isolation and successfully in 2018 Her pulmonary veins were found to be completely isolated from this prior ablation She may stop the evening dose of metoprolol but she will continue the a.m. dose and will continue Xarelto lifelong Thank you for entrusting me with the care of the patient Warm regards Sincerely Jude Melendez
[2021-08-05] MEDS ORDERED: RIVAROXABAN 20 MG TAB PO SCH (21:00)
[2021-08-05] MEDS ORDERED: traZODone HCL 100 MG TAB PO PRN (21:33)
[2021-08-05] MEDS ORDERED: LORazepam 0.5 MG TAB PO PRN (21:33)
[2021-08-06] MEDS ORDERED: LEVOTHYROXINE 100 MCG TAB PO SCH (07:30)
[2021-08-06 07:40] VITALS: BP 123/66; PULSE 77; TEMP 98.7
[2021-08-06] MEDS: SODIUM CHLORIDE 0.9% 1,000 ML IV SCH (07:54)
[2021-08-06] MEDS ORDERED: LOSARTAN 25 MG TAB PO SCH (09:00)
[2021-08-06] MEDS ORDERED: METOPROLOL TARTRATE 25 MG TAB PO SCH (09:00)
--- NOTE | 2021-08-21 14:29 | P.DS ---
Providers Attending physician: Jude Melendez Primary care physician: Lavell Baires [facility] Course: Patient doing well post procedure the next day No chest discomfort dizziness lightheadedness No undue shortness of breath Ambulating around in the room On examination Blood pressure 119/79 mmHg pulse rate in the 70s Afebrile Heart sounds S1 and S2 normal Breath sounds are clear Groins of healed well Impression Result Diagnostic EP study revealed a very easily inducible atrial tachycardia, 2 different morphologies noted initially Transient mechanical termination during transseptal puncture, at the exact time when the needle crossed over into the left atrium Successful radio-frequency ablation of left atrial roof reentry Successful radiofrequency ablation of septal atrial tachycardia/left atrial septal ablation Successful termination of mitral reentrant tachycardia Despite a complete anatomic alignment of block with good contact force an apartment 40 [address], bidirectional block could not be demonstrated across the mitral isthmus However pacing from the coronary sinus at the site of ablation revealed non- capture, therefore [place] sinus lesions were not delivered 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 Initially a right atrial tachycardia was initiated with negatively oriented P waves in V1, cycle length 240 ms This quickly organized to mitral isthmus tachycardia cycle length of about 260 ms Plan If in the future she has recurrence of atrial tachycardia then #1 in case it is a recurrence of mitral reentry then I would proceed with endocardial RF ablation with balloon occlusion of the coronary sinus blood flow #2 in case of a right atrial tachycardia, this will be mapped accordingly Discharge home today Plan - Discharge Summary Discharge Rx Participant: No New Discharge Prescriptions: Discontinued Metoprolol Tartrate 12.5 mg PO HS No Action Multivitamins, Thera [Multivitamin (formulary)] 1 each PO DAILY LORazepam [Ativan] 0.5 mg PO HS PRN PRN Reason: Anxiety Levothyroxine Sodium [Synthroid] 100 mcg PO AC-BRKFST Rivaroxaban [Xarelto] 20 mg PO W/SUPPER Losartan Potassium 75 mg PO DAILY Cholecalciferol [Vitamin D3 (25 Mcg = 1000 Iu)] 5,000 unit PO DAILY traZODone HCL 100 mg PO HS Cod Liver Oil 1 each PO DAILY Magnesium Citrate 250 mg PO HS Desvenlafaxine [Desvenlafaxine ER] 50 mg PO DAILY Tumeric 2,000 mg PO DAILY Pro [place] Joint Extra 3 tab PO DAILY Biotin Hair 12,000 mcg PO DAILY Metoprolol Tartrate [Lopressor] 25 mg PO DAILY Omeprazole 20 mg PO DAILY Ferrous Sulfate [Iron] 325 mg PO PC-SUPPER Discharge Medication List LORazepam [Ativan] 0.5 mg PO HS PRN 10/10/14 [History] Levothyroxine Sodium [Synthroid] 100 mcg PO AC-BRKFST 10/10/14 [History] Multivitamins, Thera [Multivitamin (formulary)] 1 each PO DAILY 10/10/14 [History] Losartan Potassium 75 mg PO DAILY 08/18/16 [History] Rivaroxaban [Xarelto] 20 mg PO W/SUPPER 08/18/16 [History] Cholecalciferol [Vitamin D3 (25 Mcg = 1000 Iu)] 5,000 unit PO DAILY 02/17/17 [History] traZODone HCL 100 mg PO HS 10/18/17 [History] Biotin Hair 12,000 mcg PO DAILY 08/01/21 [History] Cod Liver Oil 1 each PO DAILY 08/01/21 [History] Desvenlafaxine [Desvenlafaxine ER] 50 mg PO DAILY 08/01/21 [History] Ferrous Sulfate [Iron] 325 mg PO PC-SUPPER 08/01/21 [History] Magnesium Citrate 250 mg PO HS 08/01/21 [History] Metoprolol Tartrate [Lopressor] 25 mg PO DAILY 08/01/21 [History] Omeprazole 20 mg PO DAILY 08/01/21 [History] Pro [place] Joint Extra 3 tab PO DAILY 08/01/21 [History] Tumeric 2,000 mg PO DAILY 08/01/21 [History] Follow up Appointment(s)/Referral(s): Manju Lira MD [STAFF PHYSICIAN] - 1 Week (Office will call with apointment time and date.) Patient Instructions/Handouts: Cardiac Ablation (DC) Activity/Diet/Wound Care/Special Instructions: Post EP study - Ablation instructions 1. Keep access sites dry for 2 days. 2. No heavy lifting or straining for 2 days. 3. Avoid bending the hips repeatedly for 2 days. 4. You may go up and down stairs slowly Call if the following is noted 1. Bleeding, increasing swelling or pain at the access sites. 2. Increasing chest discomfort, especially upon taking a deep breath. 3. Increasing shortness of breath, at rest or with exertion. 4. Undue cough / phlegm 5. Difficulty or pain while swallowing. 6. Pain or change in color in the extremities. 7. Fever, chills, rigors. 8. Increasing headache or neurologic symptoms. 9. Dizziness, fainting, palpitations Stop evening dose of metoprolol Continue Xarelto Continue other medications Follow-up with Dr. Lira in a week Discharge Disposition: HOME SELF-CARE
== END 2021-08-06 11:23 | disposition home or self-care (01) ==
LOC: CATHEP 11:17 → 6NMEDSUR 18:32 → CATHEP 08-06 11:23
PROVIDERS: ATTEND Internal Medicine Clinical Cardiac Electrophysiology
DX: I47.1 Supraventricular tachycardia (principal); I48.92 Unspecified atrial flutter; I48.19 Other persistent atrial fibrillation; I10 Essential (primary) hypertension; I08.0 Rheumatic disorders of both mitral and aortic valves; Z79.01 Long term (current) use of anticoagulants
CPT/HCPCS: 93653; 93462; 93662; 87635; C1759; C1769 ×4; C1894 ×2; C1760; C1730 ×3; C1731; C1893; C1732; J2250; J2720; J1644 ×3; J1940; J2710; J2405; J2001 ×2; J3010; J0131; J2370; J0330; J2704; 93620; 93655

== ENCOUNTER → 2022-07-15 | Outpatient (CLI) | payer MEDICARE ==
--- NOTE | 2022-07-16 20:23 | MM ---
Reason for Exam: Screening (asymptomatic). Last mammogram was performed 2 year(s) and 1 month(s) ago. Patient History: Menarche at age 11. First Full-Term at age 31. Late child-bearing (after 29). Left ovary removed at age 50. Right ovary removed at age 50. Hysterectomy at age 50. Postmenopausal. Patient has history of breast feeding. Estrogen for 6 years from age 50 until age 56. Risk Values: Rebeca 5 year model risk: 2.4%. NCI Lifetime model risk: 5.9%. Prior Study Comparison: 02/12/2015 Bilateral Screening Mammogram, [facility]. 12/28/2017 Bilateral Screening Mammogram, [facility]. 06/21/2020 Bilateral Screening Mammogram, [facility]. Tissue Density: There are scattered fibroglandular densities. Findings: Analyzed By CAD. Areas of bilateral asymmetric density are unchanged. There is no suspicious group of microcalcifications or new suspicious mass in either breast. Overall Assessment: Benign, BI-RAD 2 Management: Screening Mammogram of both breasts in 1 year. . Patient should continue monthly self-breast exams. A clinical breast exam by your physician is recommended on an annual basis. This exam should not preclude additional follow-up of suspicious palpable abnormalities. Note on Rebeca scores and lifetime risk: 1. A Rebeca score greater than 3% is considered moderate risk. If this is the case, consider specialist referral to assess eligibility for a risk reducing agent. 2. If overall lifetime risk for the development of breast cancer is 20% or higher, the patient may qualify for future screening with alternating mammogram and breast MRI. Electronically signed and approved by: Garima Gallardo M.D. Radiologist
== END | disposition home or self-care (01) ==
LOC: RADMAMWWP 11:38
PROVIDERS: ATTEND Internal Medicine
DX: Z12.31 Encounter for screening mammogram for malignant neoplasm of breast (principal); Z78.0 Asymptomatic menopausal state
CPT/HCPCS: 77063; 77067

== ENCOUNTER → 2023-07-26 | Outpatient (CLI) | payer MEDICARE ==
[2023-07-26 18:29] LABS: Basophils # (A) 0.06 X 10*3/uL (0.00-0.10); Eosinophils # (A) 0.13 X 10*3/uL (0.04-0.35); Eosinophils % (A) 2.1 %; HCT 38.2 % (37.2-46.3); HGB 12.7 g/dL (12.0-15.0); MCH 32.2 pg (27.0-32.0); MCHC 33.2 g/dL (32.0-37.0); Mean Platelet Volume 12.5 FL (9.5-12.2); Monocytes # (A) 0.69 X 10*3/uL (0.20-1.00); Monocytes % (A) 11.3 %; NRBC Per 100 WBC 0 X 10*3/uL (0.00-0.01); Neutrophils # (A) 4.12 X 10*3/uL (1.80-7.70); Neutrophils % (A) 67.3 %; Platelet Count 159 X 10*3/uL (140-440); RBC 3.94 X 10*6/uL (4.10-5.20); RDW 13.6 % (11.5-14.5); WBC 6.12 X 10*3/uL (4.50-10.00)
== END | disposition home or self-care (01) ==
LOC: LABWHC1 14:33
PROVIDERS: ATTEND Internal Medicine Interventional Cardiology
DX: I10 Essential (primary) hypertension (principal)
CPT/HCPCS: 36415; 85025

== ENCOUNTER → 2024-02-17 | Outpatient (CLI) | payer MEDICARE ==
--- NOTE | 2024-02-21 17:29 | MM ---
Reason for Exam: Screening (asymptomatic). Last mammogram was performed 1 year(s) and 7 month(s) ago. Patient History: Menarche at age 11. First Full-Term at age 31. Late child-bearing (after 29). Left ovary removed at age 50. Right ovary removed at age 50. Hysterectomy at age 50. Postmenopausal. Patient has history of breast feeding. Estrogen for 6 years from age 50 until age 56. Risk Values: Rebeca 5 year model risk: 2.4%. NCI Lifetime model risk: 5.6%. Prior Study Comparison: 12/28/2017 Bilateral Screening Mammogram, [facility]. 06/21/2020 Bilateral Screening Mammogram, [facility]. 07/15/2022 Bilateral MG 3D screening mammo w/cad, [facility]. Tissue Density: There are scattered areas of fibroglandular density. Findings: Analyzed By CAD. Unchanged asymmetric densities right breast. There is no suspicious group of microcalcifications or new suspicious mass in either breast. Overall Assessment: Benign, BI-RAD 2 Management: Screening Mammogram of both breasts in 1 year. . Patient should continue monthly self-breast exams. A clinical breast exam by your physician is recommended on an annual basis. This exam should not preclude additional follow-up of suspicious palpable abnormalities. Note on Rebeca scores and lifetime risk: 1. A Rebeca score greater than 3% is considered moderate risk. If this is the case, consider specialist referral to assess eligibility for a risk reducing agent. 2. If overall lifetime risk for the development of breast cancer is 20% or higher, the patient may qualify for future screening with alternating mammogram and breast MRI. [facility], , 02/21/2024 5:26 PM. Electronically signed and approved by: Garima Gallardo M.D. Radiologist
== END | disposition home or self-care (01) ==
LOC: RADMAMWWP 12:55
PROVIDERS: ATTEND Internal Medicine
DX: Z12.31 Encounter for screening mammogram for malignant neoplasm of breast (principal); Z90.722 Acquired absence of ovaries, bilateral; Z78.0 Asymptomatic menopausal state; R92.323 Mammographic fibroglandular density, bilateral breasts
CPT/HCPCS: 77063; 77067